=== PATIENT | male | born 1945 | race Caucasian/White ===

== ENCOUNTER → 2016-07-17 | Outpatient (CLI) | payer BC ==
[~2016-07-17] MED LIST: ASPI81TA28 PO; ATOR10TA82 PO; CYAN500T13 PO; MULT-506 PO
--- NOTE | 2016-07-18 17:00 | EEG Procedure Note ---
EEG Procedure Note Date of Service Jul 17, 2016. Start / End Times Start Time: 1:47 PM End Time: 2:07 PM Referring Physician Moy Miller History This is a 71-year-old male with a seizure-like episode. EEG for further evaluation of possible seizure etiology. Home medications: No sedating medications or antiepileptic medications noted on list. Description This is a 21 electrode EEG with a single channel dedicated to limited EKG. The electrodes were placed in accordance with the International 10-20 system. At the start of the recording the patient was in an awake state. Background was well organized and composed of symmetric mixed alpha and beta frequencies. There was a symmetric well-formed moderate amplitude 8-9 Hz posterior dominant rhythm that was reactive to eye opening and closure. Hyperventilation was not done. Intermittent photic stimulation at various frequencies produced no abnormalities. Drowsiness was indicated by loss of muscle artifact, slowing of the background rhythm, and vertex waves. There was no stage II sleep transients. Interpretation This is a normal awake and drowsy routine EEG. There was no electrographic seizures or epileptiform discharges. Clinical Correlation A normal EEG does not rule out epilepsy if there is a strong clinical suspicion.
== END | disposition home or self-care (01) ==
LOC: C.NEUR 13:29
PROVIDERS: ATTEND Family Medicine
DX: R56.9 Unspecified convulsions (principal)

== ENCOUNTER → 2016-10-07 | Outpatient (CLI) | payer BC ==
[~2016-10-07] MED LIST changes: -ATOR10TA82 PO; +ATOR10TA88 PO; +GADAVIST IV PRN
--- NOTE | 2016-10-07 08:08 | DIAGNOSTIC IMAGING REPORT ---
MRI OF THE BRAIN WITHOUT AND WITH IV CONTRAST CLINICAL HISTORY: SEIZURE COMPARISON STUDY: No previous studies for comparison. TECHNIQUE: MRI of the brain was performed from the vertex to the skull base utilizing various T1 and T2 weighted sequences. Following the IV administration of 8 mL of Gadavist contrast, additional enhanced images were obtained. FINDINGS: Sagittal T1, axial diffusion, proton density and T2 weighted axial, coronal FLAIR, and pre and post axial T1-weighted images were acquired. These were supplemented with post gadolinium coronal T1 weighted images. No intra or extra-axial mass lesions are visualized. Axial diffusion-weighted images reveal no evidence of acute or subacute infarction. There is no evidence of ventricular dilatation. Proton density T2-weighted and FLAIR images reveal scattered foci of increased T2 signal within the white matter, likely on a small vessel basis. There are no abnormal flow voids. There is a 2.8 mm focus of enhancement within the left occipital lobe. There is no surrounding edema. This a nonspecific finding which may simply represent enhancement of a prominent vessel. Thin section coronal T2-weighted images through the temporal lobes reveal symmetric hippocampal formations. There are foci of increased T2 signal within the mastoid, likely on an inflammatory basis. IMPRESSION: 1. No evidence of intracranial mass 2. No evidence of acute or subacute infarction. 3. Foci of increased T2 signal within the white matter, likely on a small vessel basis. 4. 2.8 mm focus of enhancement within the left occipital lobe. This is a nonspecific finding which may simply represent enhancement of a prominent vessel. Electronically signed by: Bryn Argueta M.D. 10/07/2016 8:07 AM Dictated Date/Time: 10/07/2016 8:02 AM
== END | disposition home or self-care (01) ==
LOC: C.MRIBC 06:51
PROVIDERS: ATTEND Psychiatry & Neurology Neurology
DX: R56.9 Unspecified convulsions (principal); R90.82 White matter disease, unspecified

== ENCOUNTER 2017-02-14 18:17 | Emergency (ER) | payer BC ==
[~2017-02-14] VITALS: Ht 190.5 cm; Wt 76.8 kg
[2017-02-14 18:23] VITALS: TEMP 36.5; Ht 190.5 cm; Wt 76.8 kg
[2017-02-14] MEDS ORDERED: ATOR10TA88 PO (18:33)
[2017-02-14] MEDS ORDERED: CYAN500T13 PO (18:33)
[2017-02-14] MEDS ORDERED: ASPI81TA28 PO (18:33)
[2017-02-14] MEDS ORDERED: MULT-506 PO (18:33)
[2017-02-14] MEDS ORDERED: XYLOCAINE 1%/SOD BICARB 20 ML VIAL INFIL STA (18:41)
--- NOTE | 2017-02-14 19:35 | EMERGENCY ROOM VISIT NOTE ---
ED Visit Note First contact with patient: 18:37 Chief Complaint: "Deep cut on left hand". History of Present Illness: This patient is a 71-year-old male who presents to the Emergency Department via private vehicle for evaluation of their left proximal first digit laceration. Patient sustained the laceration earlier today 30 minutes prior to arrival. He states that a pair of small mainor were dropped , striking his hand. They report a moderate amount of bleeding initially. They deny any numbness or tingling into the distal extremity. They report no decreased range of motion of the affected digit. Patient rates his current discomfort as a 0/10. Patient's Tetanus status is believed to be currently up-to -date. Medications: As noted below Allergies: None PMH: No pertinent SHx: Patient lives locally ROS: All pertinent positive and negative review of systems are appropriately documented in the History of Present Illness. Physical Exam: VITAL SIGNS - Vital signs and nursing notes were reviewed. Stable. GENERAL -71-year-old male appearing his stated age who is in no acute distress. Communicates well with provider and answers questions appropriately. SKIN - There is a 1 cm long laceration noted base of the left first digit on the ventral aspect. The edges gape apart with traction. No foreign bodies appreciated. Upon further examination there are no deep structures including vessel, tendon, or bony structures appreciated. There is no active bleeding noted. MUSCULOSKELETAL - Laceration as described above. +5/5 strength appreciated of the affected digit. Full range of motion of the affected digit. NEUROLOGIC -he is neurovascularly intact in the left hand. VASCULAR - Capillary refill was brisk. ED Course: Patient was seen and evaluated by myself. Risks and benefits of performing primary wound closure versus no repair were discussed with the patient who verbalizes understanding. Verbal consent was obtained prior to performing the procedure. 3 cc of 1% buffered lidocaine was used to perform local anesthetization of the wound. The wound was cleansed and prepped in the typical sterile fashion utilizing normal saline and Betadine. The wound was sterilely draped. Once proper anesthetization was established, the wound was further examined and demonstrated no deep involvement or tendon involvement. The wound was copiously irrigated with normal saline and Betadine. The wound was closed using 3 simple, 6-0 nylon sutures with the wound edges being well approximated. Patient tolerated the procedure well. No complications were met. The wound was cleansed and dressed with a Bacitracin dressing. A metal splint was applied to the finger for comfort. Patient educated on worrisome symptoms for return visit to the Emergency Department. Patient discharged to home in good condition. In the evaluation and treatment of this patient, the following differential diagnoses were considered: Finger Fracture, Finger Dislocation, Finger Sprain, Finger Contusion, [place] Finger, finger laceration, or Mallet Finger. Current/Historical Medications Scheduled Aspirin (Aspirin Ec), 81 MG PO DAILY Atorvastatin (Lipitor), 10 MG PO DAILY Cyanocobalamin (Vitamin B12 500MCG), 500 MCG PO DAILY Multivitamin (Multivitamin), 1 TAB PO DAILY Allergies Coded Allergies: No Known Allergies (Unverified , 02/14/17) Vital Signs Date Time Temp Pulse Resp B/P (MAP) Pulse Ox O2 Delivery O2 Flow Rate FiO2 02/14/17 19:40 50 16 101/62 97 02/14/17 18:23 36.5 106 18 117/75 96 Room Air Departure Information Impression Primary Impression: Laceration Dispostion Home / Self-Care Condition GOOD Referrals Moy Miller M.D. (PCP) Patient Instructions [facility] Additional Instructions Discharge Instructions: You have received 3 sutures on your finger. These sutures are NOT dissolvable and WILL need to be removed by a health care provider in 12 days. You can return to the Emergency Department or contact your Primary Care Provider to have the sutures removed. Please wear the splint for comfort until the sutures are removed. Proper wound care is essential for adequate wound healing and infection prevention. You can shower and clean the wound with soap and water. Do not scour over the wound, pat dry with a towel. Do not submerse the wound (i.e. bathe or dish wash) until the sutures have been removed. You can use an antibiotic ointment with a dressing over the wound for the next 3-4 days. After this time you may leave the wound dry and open to the air. If crust develops over the wound you can use a Q-tip to apply a 1:1 peroxide:water solution to clean the wound. Look for signs of infection of the wound including: increased pain, swelling, foul discharge, streaking, or increased temperature. If any of these are noticed you should return to the Emergency Department for further assessment and treatment. As with any laceration you may have received nerve damage to the surrounding tissues. This damage may or may not be permanent. You should keep the area covered with sunscreen for the first 6 months to 1 year when at risk for exposure to help minimize scarring. You can also use scar reducing creams or Vitamin E oil to help minimize scarring. Return to the emergency department if your symptoms worsen despite treatment course outlined above.
[2017-02-14 19:40] VITALS: BP 101/62; PULSE 50; O2SAT 97
== END 2017-02-14 19:40 | disposition home or self-care (01) ==
LOC: C.EDB 18:18 → C.EDD 19:40
DX: S61.211A Laceration without foreign body of left index finger without damage to nail, initial encounter (principal); W22.8XXA Striking against or struck by other objects, initial encounter; W27.2XXA Contact with scissors, initial encounter; Z79.82 Long term (current) use of aspirin